=== PATIENT | female | born 1990 | race African-American/Black ===

== ENCOUNTER 2022-05-08 17:47 | Emergency (ER) | payer MEDICAID ==
[~2022-05-08] VITALS: Ht 152.4 cm; Wt 48.1 kg
[2022-05-08 17:59] VITALS: BP 110/76
--- NOTE | 2022-05-08 18:08 | NUR ---
PT AMBULATED TO BED 03.
--- NOTE | 2022-05-08 18:27 | NUR ---
32 Y/O FEMALE BIB SELF C/O OF LOWER BACK PAIN, ABD PAIN RADIATING TO THE BILATERAL LEGS 10/10 PRESSURE. DENIED ANY TRAUMA OR RECENT INJURY. DENIED ANY FEVER, N/V/D. DENIED ANY MEDICATION FOR PAIN STATED THAT SHE HAD AN IN NOVEMBER BUT THAT IT WASNT FULLY REMOVED. HX OF ECTOPIC NKA PMH: DENIES
--- NOTE | 2022-05-08 18:49 | NUR ---
DR AYALA MADE AWARE OF PT PAIN
--- NOTE | 2022-05-08 18:51 | NUR ---
DR AYALA AT BEDSIDE FOR EVAL
[2022-05-08] MEDS ORDERED: MORPHINE SULFATE 4 MG/ML SYR IM ONE (18:55)
--- NOTE | 2022-05-08 19:15 | NUR ---
Pt report given to CLAYTON COBOS. Transfer of care at this time.
[2022-05-08 19:25] LABS: CORRECTED WHITE BLOOD COUNT 9.5 K/uL (4.5-11.0); HEMATOCRIT 35.3 % (36-48); HEMOGLOBIN 11.6 g/dL (12.0-16.0); MEAN CORPUSCULAR HEMOGLOBIN 29 pg (27-31); MEAN CORPUSCULAR HGB CONC 33 g/dL (33-37); MEAN CORPUSCULAR VOLUME 89.4 fL (80-94); RED BLOOD CELL COUNT(AUTO) 3.95 MIL/uL (4.20-5.40); RED CELL DISTRIBUTION WIDTH 15.3 % (11.6-13.7); WHITE BLOOD COUNT (AUTO) 9.5 K/uL (4.8-10.8)
[2022-05-08 19:26] LABS: BASOPHILS % (AUTO) 0.2 % (0.0-2.0); EOSINOPHILS % (AUTO) 0.3 % (0.0-4.0); LYMPHOCYTES # (AUTO) 0.3 K/uL (2.5-16.5); LYMPHOCYTES % (AUTO) 2.7 % (20.5-51.1); MONOCYTES # (AUTO) 0.8 K/uL (0.8-1.0); NEUTROPHILS # (AUTO) 8.4 K/uL (1.8-7.7); NEUTROPHILS % (AUTO) 88.8 % (42.2-75.2); PLATELET COUNT (AUTO) 188 K/uL (140-450)
[2022-05-08 19:34] LABS: ANION GAP 15.4 (8-16); CARBON DIOXIDE 21.3 mmol/L (21-32); CREATININE 0.7 mg/dL (0.6-1.3); POTASSIUM 3.7 mmol/L (3.5-5.1)
[2022-05-08] MEDS ORDERED: ACET-8386 PO (20:56)
[2022-05-08 21:02] LABS: BARBITURATE, URINE NEGATIVE ng/ml (NEG <=200); BENZODIAZEPINE, URINE NEGATIVE ng/mL (NEG <=200); CANNABINOID, URINE POSITIVE ng/mL (NEG <=50); COCAINE, URINE NEGATIVE ng/mL (NEG <=300); OPIATE, URINE NEGATIVE ng/mL (NEG <=2000); PHENCYCLIDINE SCREEN,URINE NEGATIVE ng/mL (NEG <=25)
[2022-05-08 21:14] LABS: APPEARANCE,URINE CLEAR (CLEAR); BILIRUBIN,URINE 1+ (NEGATIVE); BLOOD, URINE TRACE-I (NEGATIVE); COLOR,URINE YELLOW (YELLOW); LEUKOCYTE ESTERASE ,URINE NEGATIVE (NEGATIVE); NITRITE, URINE NEGATIVE (NEGATIVE); UGLUCOSE NEGATIVE (NEGATIVE)
[2022-05-08 21:18] LABS: WBC,URINE 0 /HPF (0-5)
[2022-05-08 21:43] VITALS: BP 104/58
--- NOTE | 2022-05-08 21:44 | NUR ---
Patient discharged with v/s stable. Written and verbal after care instructions given and explained. Patient alert, oriented and verbalized understanding of instructions. Ambulatory with steady gait. All questions addressed prior to discharge. ID band removed. Patient advised to follow up with PMD. Rx of HYDROCODON-ACETAMINOPHEN 5-325 given. Patient educated on indication of medication including possible reaction and side effects. Opportunity to ask questions provided and answered.
== END 2022-05-08 21:40 | disposition home or self-care (01) ==
LOC: MED 17:47
DX: M54.50 Low back pain, unspecified (principal); R10.2 Pelvic and perineal pain; Z98.890 Other specified postprocedural states; Z79.891 Long term (current) use of opiate analgesic; Z88.1 Allergy status to other antibiotic agents
CPT/HCPCS: 36415; 76856; 80048; 80305; 81001; 81025; 85025; 93976; 96372; 99284; J2270; Q0092

== ENCOUNTER 2022-07-19 08:41 | Emergency (ER) | payer MEDICAID ==
[~2022-07-19] VITALS: Ht 149.9 cm; Wt 44.5 kg
[~2022-07-19 08:41] MED LIST: ACET-8386 PO
[2022-07-19 08:51] VITALS: BP 108/73
--- NOTE | 2022-07-19 08:56 | NUR ---
PT AMBULATED TO ER BED 3
--- NOTE | 2022-07-19 08:57 | NUR ---
Patient ambulated to restroom.
--- NOTE | 2022-07-19 09:22 | NUR ---
32 y/o female bib self with c/o n/v, abdominal pain and headache x 3 days. Patient states her son had similar symptoms but no vomiting. Patient has 9/10 abdominal pain. Patient denies eating any new food. Denies any fever or chills. Patient states she is "having hot flashes." Patient states her bowel movements are normal, no diarrhea. LMP 07/09/22. Medical History: Denies ALLERGY: AZITHROMYCIN
--- NOTE | 2022-07-19 09:22 | NUR ---
Dr. Cazares evaluating patient at bedside.
[2022-07-19] MEDS ORDERED: ONDANSETRON 4 MG/2 ML VIAL IVP ONE ×2 (09:35→12:30)
--- NOTE | 2022-07-19 10:01 | NUR ---
Started IV obtained bloodwork, handed blood to CPT Elisabet.
[2022-07-19 10:12] LABS: BASOPHILS % (AUTO) 0.2 % (0.0-2.0); HEMATOCRIT 35.9 % (36-48); HEMOGLOBIN 11.8 g/dL (12.0-16.0); LYMPHOCYTES # (AUTO) 0.4 K/uL (2.5-16.5); LYMPHOCYTES % (AUTO) 5.5 % (20.5-51.1); MEAN CORPUSCULAR HEMOGLOBIN 28 pg (27-31); MEAN CORPUSCULAR HGB CONC 33 g/dL (33-37); MEAN CORPUSCULAR VOLUME 86.1 fL (80-94); MONOCYTES # (AUTO) 0.7 K/uL (0.8-1.0); MONOCYTES % (AUTO) 9.6 % (1.7-9.3); NEUTROPHILS # (AUTO) 6.3 K/uL (1.8-7.7); NEUTROPHILS % (AUTO) 84.7 % (42.2-75.2); PLATELET COUNT (AUTO) 260 K/uL (140-450); RED BLOOD CELL COUNT(AUTO) 4.17 MIL/uL (4.20-5.40); RED CELL DISTRIBUTION WIDTH 14.2 % (11.6-13.7); WHITE BLOOD COUNT (AUTO) 7.4 K/uL (4.8-10.8)
[2022-07-19 10:32] LABS: ALBUMIN 4.3 g/dL (3.4-5.0); ANION GAP 15.7 (8-16); CARBON DIOXIDE 22.6 mmol/L (21-32); CREATININE 0.7 mg/dL (0.6-1.3); POTASSIUM 3.3 mmol/L (3.5-5.1); TOTAL BILIRUBIN 0.3 mg/dL (0.0-1.0)
[2022-07-19 10:59] LABS: APPEARANCE,URINE SL CLOUDY (CLEAR); BILIRUBIN,URINE NEGATIVE (NEGATIVE); BLOOD, URINE NEGATIVE (NEGATIVE); COLOR,URINE YELLOW (YELLOW); LEUKOCYTE ESTERASE ,URINE NEGATIVE (NEGATIVE); NITRITE, URINE NEGATIVE (NEGATIVE); PH,URINE 6.5 (5.0-9.0); UGLUCOSE NEGATIVE (NEGATIVE)
--- NOTE | 2022-07-19 12:25 | NUR ---
PT NAUSEOUS AND THROWING UP AGAIN, DR JAMA MADE AWARE
[2022-07-19] MEDS ORDERED: POTASSIUM CHL 20 MEQ/NACL 0.9% 1,000 ML IV ONE (12:35)
[2022-07-19] MEDS ORDERED: NACL 0.9% 1,000 ML IV ONE (12:40)
[2022-07-19] MEDS ORDERED: KCL 20 MEQ/WATER INJ PREMIX 200 ML IV ONE (12:40)
[2022-07-19] MEDS ORDERED: KCL 20 MEQ/WATER INJ PREMIX 100 ML IV ONE (13:05)
[2022-07-19] MEDS ORDERED: POTASSIUM CHLORIDE 10 MEQ TABER PO ONE (13:05)
--- NOTE | 2022-07-19 14:40 | NUR ---
Patient ambulated to restroom with steady gait.
[2022-07-19] MEDS ORDERED: ONDA-188 PO (15:10)
--- NOTE | 2022-07-19 16:50 | NUR ---
Patient discharged with v/s stable. Written and verbal after care instructions given. Patient alert, oriented and verbalized understanding of instructions. Ambulatory with steady gait. All questions addressed prior to discharge. ID band removed. Patient advised to follow up with PMD. Rx of Zofran given. Opportunity to ask questions provided and answered.
[2022-07-19 16:52] VITALS: BP 98/55
== END 2022-07-19 16:50 | disposition home or self-care (01) ==
LOC: MED 08:41
DX: O21.8 Other vomiting complicating pregnancy (principal); O99.281 Endocrine, nutritional and metabolic diseases complicating pregnancy, first trimester; E86.0 Dehydration; E87.6 Hypokalemia; Z3A.01 Less than 8 weeks gestation of pregnancy; Z79.899 Other long term (current) drug therapy; Z79.891 Long term (current) use of opiate analgesic; Z98.890 Other specified postprocedural states; Z88.1 Allergy status to other antibiotic agents
CPT/HCPCS: 36415; 76801; 80053; 81003; 81025; 83690; 84702; 85025; 96365; 96366; 96375; 96376; 99284; J2405; J3480; J7030; Q0092

== ENCOUNTER 2022-07-20 18:32 | Inpatient (IN) | payer MEDICAID ==
[~2022-07-20] VITALS: Ht 152.4 cm; Wt 44.0 kg
[~2022-07-20 18:32] MED LIST changes: +ONDA-188 PO
[2022-07-20 18:43] VITALS: BP 116/71
--- NOTE | 2022-07-20 19:24 | NUR ---
Patient taken to bed 4.
--- NOTE | 2022-07-20 20:04 | NUR ---
Dr. Goodman examining patient.
[2022-07-20] MEDS ORDERED: NACL 0.9% 1,000 ML IV ONE (20:05)
[2022-07-20] MEDS ORDERED: ONDANSETRON 4 MG/2 ML VIAL IVP ONE ×2 (20:05)
--- NOTE | 2022-07-20 20:12 | NUR ---
COVID-19 swabs collected and sent to lab.
--- NOTE | 2022-07-20 20:17 | NUR ---
Ultrasound at bedside.
[2022-07-20 20:30] LABS: BASOPHILS % (AUTO) 0.3 % (0.0-2.0); HEMATOCRIT 38.4 % (36-48); HEMOGLOBIN 12.6 g/dL (12.0-16.0); LYMPHOCYTES # (AUTO) 0.8 K/uL (2.5-16.5); LYMPHOCYTES % (AUTO) 11.1 % (20.5-51.1); MEAN CORPUSCULAR HEMOGLOBIN 29 pg (27-31); MEAN CORPUSCULAR HGB CONC 33 g/dL (33-37); MEAN CORPUSCULAR VOLUME 87.2 fL (80-94); MONOCYTES # (AUTO) 0.8 K/uL (0.8-1.0); MONOCYTES % (AUTO) 12.2 % (1.7-9.3); NEUTROPHILS # (AUTO) 5.3 K/uL (1.8-7.7); NEUTROPHILS % (AUTO) 76.4 % (42.2-75.2); PLATELET COUNT (AUTO) 246 K/uL (140-450); RED BLOOD CELL COUNT(AUTO) 4.41 MIL/uL (4.20-5.40); RED CELL DISTRIBUTION WIDTH 14.1 % (11.6-13.7); WHITE BLOOD COUNT (AUTO) 6.9 K/uL (4.8-10.8)
[2022-07-20 20:46] LABS: ALBUMIN 4.3 g/dL (3.4-5.0); ANION GAP 19.5 (8-16); CARBON DIOXIDE 20.2 mmol/L (21-32); CREATININE 0.7 mg/dL (0.6-1.3); POTASSIUM 3.7 mmol/L (3.5-5.1); TOTAL BILIRUBIN 0.2 mg/dL (0.0-1.0)
[2022-07-20] MEDS ORDERED: guaiFENesin DM 200/20 MG-10 ML 10 ML UDC PO PRN (21:35)
[2022-07-20] MEDS ORDERED: ACETAMINOPHEN 325 MG TAB PO PRN (21:35)
[2022-07-20] MEDS ORDERED: POTASSIUM CHLORIDE 10 MEQ TABER PO PRN (21:35)
[2022-07-20] MEDS ORDERED: DOCUSATE SODIUM 100 MG GELCAP PO PRN (21:35)
[2022-07-20] MEDS ORDERED: HYDROcodone/APAP 7.5/325 MG 1 TAB PO PRN (21:35)
[2022-07-20] MEDS ORDERED: ZOLPIDEM 5 MG TAB PO PRN (21:35)
[2022-07-20] MEDS: NACL 0.9% 1,000 ML IV SCH (21:40)
--- NOTE | 2022-07-20 21:57 | NUR ---
Per Dr. Gonzalez's order for regular diet, patient given 2 apple juice and crackers to eat. Patient states she "does not feel nauseas," after given zofran. Patient's BG per lab was 67. Dr. Gonzalez aware.
--- NOTE | 2022-07-20 22:03 | NUR ---
Patient will be admitted to care of Katie COBOS. [facility] Will [facility]. Belongings list completed. Report to Katie COBOS. Medsurg nurse Katie COBOS verbalized understanding of report, no further questions.
[2022-07-20 22:25] LABS: PROTHROMBIN TIME 10.4 secs (10.8-13.4)
[2022-07-20 22:26] LABS: AMYLASE 67 U/L (25-115); CHOL/HDL RATIO 3.3 (1-4.5); FREE T4 (FREE THYROXINE) 1.03 ng/dL (0.76-1.46); HDL CHOLESTEROL 66 mg/dL (40-60); LDL (CALC) 129 mg/dL (60-100); LIPASE 60 U/L (73-393); MAGNESIUM 1.7 mg/dL (1.8-2.4); PHOSPHORUS 3.5 mg/dL (2.5-4.9); THYROID STIMULATING HORMONE 0.86 uIU/mL (0.34-3.74); TRIGLYCERIDES 107 mg/dL (30-150)
[2022-07-20 23:00] VITALS: BP 95/54
--- NOTE | 2022-07-20 23:00 | NUR ---
Admitted from ER, with chief complaint of NAUSEA AND VOMITING, 32 y/o ,Female, Cooperative, AWAKE, A/OX4. RESPIRATION EVEN AND UNLABORED. , WITH 1 . VERBALIZED SHE WAS SEEN IN ER YESTERDAY AND SENT HOME WITH ADINA PO BUT STILL SHE IS NAUSEATED AND VOMITING. INDEPENDENT, ABLE TO AMBULATE BY HERSELF. HEAD TO TOE ASSESSMENT DONE WITH PAPITO ESPOSITO. SKIN IS INTACT. DENIES PAIN 0/10.oriented to call light, bed, phone,television, bathroom, smoking policy,visiting hours, procedures, ID bracelet on. Belongings list checked.
[2022-07-20] MEDS: ONDANSETRON 4 MG/2 ML VIAL IM/IVP PRN (23:43)
--- NOTE | 2022-07-20 23:43 | NUR ---
NAUSEATED, MEDICATED WITH ZOFRAN PER MD ORDER BY PAPITO ESPOSITO.
[2022-07-20] MEDS: MULTIVIT/MIN/CA/FE/FA 1 TAB PO SCH (23:55)
--- NOTE | 2022-07-21 00:45 | NUR ---
NO N/V NOTED, SLEEPING COMFORTABLY IN BED.
--- NOTE | 2022-07-21 03:00 | NUR ---
ASSISTED TO AMBULATE TO THE BR TO VOID. BACK TO BED AFTER VOIDING AND WENT BACK TO SLEEP.
[2022-07-21 04:00] VITALS: BP 107/52
--- NOTE | 2022-07-21 05:30 | NUR ---
CUP FOR URINE COLLECTION GIVEN, INSTRUCTED TO CALL NURSE AFTER VOIDING TO BE ABLE TO SEND TO LAB FOR URINE TEST. VERBALIZED UNDERSTANDING.
--- NOTE | 2022-07-21 07:00 | NUR ---
CONDITION REMAIN STABLE. WILL ENDORSE TO AM SHIFT NURSE FOR CONTINUITY OF CARE.
[2022-07-21 07:06] LABS: BASOPHILS % (AUTO) 0.4 % (0.0-2.0); EOSINOPHILS % (AUTO) 0.1 % (0.0-4.0); HEMOGLOBIN 10.6 g/dL (12.0-16.0); LYMPHOCYTES # (AUTO) 0.9 K/uL (2.5-16.5); LYMPHOCYTES % (AUTO) 24.1 % (20.5-51.1); MEAN CORPUSCULAR HEMOGLOBIN 29 pg (27-31); MEAN CORPUSCULAR HGB CONC 33 g/dL (33-37); MONOCYTES # (AUTO) 0.6 K/uL (0.8-1.0); MONOCYTES % (AUTO) 16.6 % (1.7-9.3); NEUTROPHILS # (AUTO) 2.2 K/uL (1.8-7.7); NEUTROPHILS % (AUTO) 58.8 % (42.2-75.2); PLATELET COUNT (AUTO) 210 K/uL (140-450); RED BLOOD CELL COUNT(AUTO) 3.72 MIL/uL (4.20-5.40); RED CELL DISTRIBUTION WIDTH 13.8 % (11.6-13.7); WHITE BLOOD COUNT (AUTO) 3.8 K/uL (4.8-10.8)
[2022-07-21 07:26] LABS: ANION GAP 16.9 (8-16); CARBON DIOXIDE 17.6 mmol/L (21-32); CREATININE 0.6 mg/dL (0.6-1.3); POTASSIUM 3.5 mmol/L (3.5-5.1)
[2022-07-21 08:00] VITALS: BP 123/32
--- NOTE | 2022-07-21 08:00 | NUR ---
RECEIVED REPORT FROM THE NIGHT NURSE , PT IS SLEEPING, NO SOB, IV FLUID INFUSING.[id number]
[2022-07-21] MEDS: MULTIVIT/MIN/CA/FE/FA 1 TAB PO SCH (08:49)
--- NOTE | 2022-07-21 09:28 | NUR ---
PATIENT HAS BEEN SCREENED AND CATEGORIZED HIGH NUTRITION RISK. PATIENT WILL BE SEEN WITHIN 1-2 DAYS OF ADMISSION. 07/21/22-07/22/22 REVIEWED BY ANDRÉS DAVE RD
[2022-07-21] MEDS: NACL 0.9% 1,000 ML IV SCH (10:17)
--- NOTE | 2022-07-21 11:18 | NUR ---
DC PLANNIN YRS OLD FEMALE PATIENT WAS ADMITTED FROM HOME WITH A DX OF HYPEREMESIS GRAVIDARUM. US SHOWED EARLY INTRAUTERINE OF 6 WEEKS. RAPID COVID TEST NEGATIVE. ADMINISTERED IVF, ANTIHISTAMINE ZOFRAN AND VITAMIN. CONSULTED WITH BILLING CUSTOMER SERVICE REPRESENTATIVE DR GARCIA. DC PLAN TO GO HOME WHEN STABLE CM TO FOLLOW
--- NOTE | 2022-07-21 11:45 | NUR ---
DC PLANNING SW MET WITH PATIENT TO COMPLETE ASSESSMENT. PATIENT REPORT RESIDING WITH HER SON AT THE ADDRESS LISTED. PATIENT IDENTIFIED JUSTINO FORRESTER (MOM) [phone] EMERGENCY CONTACT AND MDM. PATIENT DENIED HAVING AD IN PLACE HOWEVER DECLINED AD OFFERED BY SW. PATIENT REPORTS MEETING WITH PCP NEEDED, LAST VISIT; NOV 28. PATIENT REPORTS BEING NEWLY AND DENIES BARRIER IN ACCESS TO [employer] S[employer]. PATIENT REPORTS RECEIVING [employer] [employer] BENEFITS OF $219 AND [employer] OF $676. PATIENT IS INDEPENDENT IN ALL ACTIVITIES AND DENIES USE OF DME. PATIENT DENIES TAKING MEDICATION AND DENIES BARRIERS IN ACCESSING MEDICATION IF NEEDED. PATIENT REPORTS PICKING UP MEDICATIONS FROM [facility] [place], WHEN NEEDED. PT DENIES MH/SA HX. PATIENT REPORTS ADEQUATE FAMILY SUPPORT AND REPORTS DC PLAN IS TO RETURN HOME WITH PARTNER PROVIDING TRANSPORTATION AND AIDING IN CARE, IF REQUIRED. SW INQUIRED ON ADDITIONAL RESOURCES NEEDED, PATIENT DECLINED AT THIS TIME.
[2022-07-21 12:00] VITALS: BP_SYST 123; BP_DIAS 32; BP_DIAS 52
[2022-07-21] MEDS: ONDANSETRON 4 MG/2 ML VIAL IM/IVP PRN (12:46)
--- NOTE | 2022-07-21 14:50 | NUR ---
07/21/22 RD INITIAL ASSESSMENT COMPLETED PLEASE REFER TO NUTRITION ASSESSMENT UNDER CARE ACTIVITY FOR ESTIMATED NUTRITIONAL NEEDS. 1. CONTINUE REGULAR DIET TOLERATED 2. RD RECOMMENDS ENSURE TID FOR NUTRITIONAL SUPPORT. 3. WILL MONITOR PO INTAKE AND GI SYMPTOMS 4. RD TO FOLLOW-UP 7 DAYS, LOW RISK REVIEWED BY ANDRÉS DAVE RD
--- NOTE | 2022-07-21 15:25 | NUR ---
PT IS DRINKING INSURE, CAN NOT EAT EARLY GIVEN ANTI NAUSEA ORDERED, WILL CONTINUE TO MONITOR. [id number]
[2022-07-21 16:00] VITALS: BP_SYST 101; BP_SYST 123; BP_DIAS 52; BP_DIAS 68
--- NOTE | 2022-07-21 19:05 | NUR ---
PATIENT WAS ENDORSED BY NIKOLAY COBOS, PATIENT WAS STABLE DURING SHIFT REPORT. PATIENT WAS INQUIRING ABOUT DISCHARGE AND NURSING WILL INFORM THE MD. PATIENT DENIES ANY PAIN/DISCOMFORT. NO NOTED S/S OF RESPIRATORY DISCHARGE. PATIENT DENIES AND FURTHER VAGINAL BLEEDING OR DISCHARGE AT THIS TIME. PATIENT DENIES ANY NAUSEA/VOMITING. BED AT THE LOWEST LEVEL. SIDE RAILS UP X 2 CALL LIGHT WITHIN REACH FOR ALL ASSISTANCE AND NEEDS. [id number]
--- NOTE | 2022-07-21 20:15 | NUR ---
PATIENT HAS SIGN OUT AGAINST [facility] FOR PERSONAL REASON. IV WAS DISCHARGED. PATIENT WAS GIVEN A BELONGING BAG AND WAS GIVEN EDUCATION TO RETURN TO THE ER IF HER CONDITION GET WORSE. SHE WAS ENCOURAGED TO CONTACT HE YOUTH MANAGER FOR A FOLLOW UP APPOINTMENT IMMEDIATELY. [id number]
--- NOTE | 2022-07-21 20:20 | NUR ---
PATIENT LEFT THE HOSPITAL. WAS NOTIFIED OF PATIENT LEAVING. [id number]
[2022-07-21 22:41] LABS: APPEARANCE,URINE CLEAR (CLEAR); BILIRUBIN,URINE NEGATIVE (NEGATIVE); BLOOD, URINE 1+ (NEGATIVE); COLOR,URINE YELLOW (YELLOW); LEUKOCYTE ESTERASE ,URINE NEGATIVE (NEGATIVE); NITRITE, URINE NEGATIVE (NEGATIVE); UGLUCOSE NEGATIVE (NEGATIVE)
[2022-07-21 22:57] LABS: RBC,URINE >20 (MANY) /HPF (0-5)
[2022-07-21 22:58] LABS: WBC,URINE 0-5 /HPF (0-5)
[2022-07-21 23:27] LABS: BARBITURATE, URINE NEGATIVE ng/ml (NEG <=200); BENZODIAZEPINE, URINE NEGATIVE ng/mL (NEG <=200); CANNABINOID, URINE POSITIVE ng/mL (NEG <=50); COCAINE, URINE NEGATIVE ng/mL (NEG <=300); OPIATE, URINE NEGATIVE ng/mL (NEG <=2000); PHENCYCLIDINE SCREEN,URINE NEGATIVE ng/mL (NEG <=25)
[2022-07-22 07:08] LABS: T4 (THYROXINE) 7.6 ug/dL (4.5-12.0)
== END 2022-07-21 20:20 | disposition left against medical advice (07) | DRG 566 ==
LOC: MED 18:32 → MTU 20:59
PROVIDERS: ADMIT Family Medicine; ATTEND Family Medicine
DX: O21.0 Mild hyperemesis gravidarum (principal); D61.818 Other pancytopenia; O26.51 Maternal hypotension syndrome, first trimester; O99.281 Endocrine, nutritional and metabolic diseases complicating pregnancy, first trimester; E78.00 Pure hypercholesterolemia, unspecified; Z20.822 Contact with and (suspected) exposure to COVID-19; E83.42 Hypomagnesemia; Z3A.01 Less than 8 weeks gestation of pregnancy; Z79.891 Long term (current) use of opiate analgesic; Z79.899 Other long term (current) drug therapy
CPT/HCPCS: 36415; 76801; 80048; 80053; 80305; 81001; 82150; 83036; 83690; 83735; 83880; 84100; 84436; 84439; 84443; 84479; 84484; 84702; 85025; 85610; 85730; 86900; 86901; 87081; 96361; 96374; 99285; J2405; Q0092